=== PATIENT | female | born 2000 | race Caucasian/White ===

== ENCOUNTER 2023-08-13 13:27 | Emergency (ER) | payer BC, SELFPAY ==
--- NOTE | ~2023-08-13 | XR_ITS ---
EXAMINATION: XR chest 2V 08/13/2023 14:21 INDICATION: Dizziness. Shortness of breath. Chest pain. PROCEDURE: 2 view chest COMPARISON: No prior studies for comparison. FINDINGS: The lungs are clear. The cardiomediastinal silhouette is within normal limits. There are no pleural effusions. There is no pneumothorax suspected. IMPRESSION: 1: NO ACUTE CARDIOPULMONARY DISEASE. Reviewed, dictated and finalized at location L.
[2023-08-13 13:43] VITALS: BP 184/116; PULSE 86; RESP 18; TEMP 36.7; O2SAT 100
--- NOTE | 2023-08-13 14:02 | ED.GENADULT ---
HPI - General Adult General Chief complaint: Upper Respiratory Infection Stated complaint: Headache/Shortness of Breath/Vomiting Source: patient Mode of arrival: ambulatory Limitations: no limitations History of Present Illness HPI narrative: Patient presents for evaluation of multiple concerns. She indicates she has had a headache in the occipital region which migrates through the parietal and frontal regions of her head for the last week. Pain is constant, feels like her brain is shifting and without numerical rating. She has a history of migraines and she states that some of her current pain is consistent with her migraine patterns, but other characteristics do not. She states with migraines she usually has photophobia but she does not at the present time. She has nausea and vomiting. She reports dizziness for the same duration of time in which she has experienced headaches. At times she feels that the room is spinning. She has experienced chest pain since arriving here. She feels like something is squeezing her chest. She denies cough and SOB. She has a hx of hypertension for which she takes spironolactone. She was placed on a 2nd antihypertensive about a month ago but it made her dizziness worse so stopped taking it. 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 She reports high stress levels. She smokes marijuana but denies tobacco use. She is questioning whether she may be . She is on oral contraception but only takes it intermittently. She believes that her symptoms may be related to anxiety. Related Data Home Medications Medication Instructions Recorded Confirmed buspirone 15 mg tablet 15 mg PO TID 08/13/23 08/13/23 drospirenone (contraceptive) 4 mg 4 mg PO DAILY 08/13/23 08/13/23 (28) tablet (Slynd) nifedipine 60 mg tablet,extended 60 mg PO DAILY 08/13/23 08/13/23 release sertraline 100 mg tablet 100 mg PO DAILY 08/13/23 08/13/23 spironolactone 100 mg tablet 100 mg PO DAILY 08/13/23 08/13/23 Allergies Allergy/AdvReac Type Severity Reaction Status Date / Time No Known Allergies Allergy Verified 08/13/23 13:47 Review of Systems Review of Systems: CONSTITUTIONAL: Denies fever, chills, or sweats. EYES: Denies visual changes, redness, or discharge. ENT: Denies rhinorrhea, congestion, sore throat, or otalgia. CARDIOVASCULAR:Reports chest pain. Denies palpitations and edema RESPIRATORY:Reports shortness of breath. Denies cough GASTROINTESTINAL: Reports nausea and vomiting. Denies abdominal pain or diarrhea. GENITOURINARY: Denies dysuria or hematuria. SKIN: Denies rash or itching. MUSCULOSKELETAL: Denies back pain, joint pain, or myalgia. NEUROLOGIC: Reports headache and dizziness PSYCHIATRIC: Reports anxiety. Denies depression. [facility] Past Medical History Medical History (Updated 08/13/23 @ 14:50 by Andrez Goyal, [facility] [employer], ) Headache Hypertension Surgical History Surgical History History of Family History Family History Mother Family history non-contributory Social History Social History (Updated 08/13/23 @ 14:10 by Andrez Goyal [facility], ) Smoking status: Never smoker Substance use: current Substance use type: marijuana Gender identity (if verbalized by the patient): Female Sexual Orientation (if Verbalized by the Patient): Straight or Heterosexual Spiritual care concerns: No Exam Narrative: GENERAL: Well-appearing, well-nourished, and in no acute distress. HEAD: Normocephalic, atraumatic. EYES: PERRLA and EOMI. ENT: Nares clear, no rhinorrhea or epistaxis. Mucous membranes moist. Oropharynx without tonsillar hypertrophy exudate or other lesions. Bilateral TMs pearly quiles nonbulging NECK: Supple. No adenopathy or masses. No carotid bruits or JVD CHEST: Clear to auscultation.
--- NOTE | 2023-08-13 14:03 | ECG_ITS ---
Measurements Intervals [place] Rate: 78 P: 45 SC: 178 QRS: 23 QRSD: 99 T: 21 QT: 387 QTc: 443 Interpretive Statements SINUS RHYTHM POSSIBLE LEFT ATRIAL ENLARGEMENT [-0.1mV P WAVE IN V1/V2] NO PREVIOUS ECG AVAILABLE FOR COMPARISON Electronically Signed On 08-13-2023 19:59:17 CDT by Myrna Fernandez M.D.
[2023-08-13 14:11] LABS: Glucose Point of Care 88 mg/dl (65-105)
== END 2023-08-13 14:52 | disposition home or self-care (01) ==
PROVIDERS: Emergency Provider Nurse Practitioner
DX: R42 Dizziness and giddiness (principal); R51.9 Headache, unspecified; F41.9 Anxiety disorder, unspecified; F12.90 Cannabis use, unspecified, uncomplicated; I10 Essential (primary) hypertension
CPT/HCPCS: 71046; 81003; 81025; 82948; 93005; 99213; G0463